=== PATIENT | male | born 1965 | race Caucasian/White ===

== ENCOUNTER 2024-05-28 07:29 | Day surgery (SDC) | payer OTHER ==
[~2024-05-28] VITALS: Ht 165.1 cm; Wt 78.5 kg
[2024-05-28] MEDS ORDERED: LIDOCAINE 2% 100 MG/5 ML UJET TP ONE (09:37)
[2024-05-28] MEDS ORDERED: fentaNYL citrate 0.05 MG/ML VIAL ONE (09:40)
[2024-05-28] MEDS ORDERED: KETOROLAC 30 MG/ML VIAL ONE (09:47)
[2024-05-28] MEDS: KETOROLAC 30 MG/ML VIAL IVP ONE (09:50)
== END 2024-05-28 11:08 | disposition home or self-care (01) ==
LOC: MDS 07:29 → MMU 07:34 → MDS 11:08
PROVIDERS: ATTEND Internal Medicine Gastroenterology
DX: Z12.11 Encounter for screening for malignant neoplasm of colon (principal); D12.2 Benign neoplasm of ascending colon; D12.8 Benign neoplasm of rectum; K57.30 Diverticulosis of large intestine without perforation or abscess without bleeding; K64.9 Unspecified hemorrhoids; I10 Essential (primary) hypertension; E78.5 Hyperlipidemia, unspecified; E78.00 Pure hypercholesterolemia, unspecified; Z79.899 Other long term (current) drug therapy
CPT/HCPCS: 45385; J1885; J3010